=== PATIENT | female | born 1940 | race Caucasian/White ===

== ENCOUNTER → 2016-09-03 08:54 | Outpatient (CLI) | payer MEDICARE, BC ==
[2012-12-18 09:28] VITALS: BMI 25.4
[~2016-09-03 08:54] MED LIST: ACAI BERRY500 MG PO; ATIVAN1 MG PO; BAYER CHEWABLE81 MG PO; BUDEPRION XL150 MG PO; CELEXA40 MG PO; DESERYL100 MG PO; HYDROCHLOROTH12.5 M1 PO; LAMICTAL25 MG PO; LEVAQUIN250 MG PO; OXYBUTYNIN CHLOR5 MG PO; PEPCID20 MG PO; PRIMIDONE; RISPERDAL0.25 MG PO; STAVZOR500 MG PO; SYNTHROID150 MCG PO; ULTRAM50 MG PO; ZESTRIL10 MG PO; ZOCOR40 MG PO
[2016-09-09 15:24] LABS: HISTOPLASMA GAL MANNAN AG SER 0.38 ng/mL (0.00-0.49)
== END | disposition home or self-care (01) ==
LOC: D.LAB 08:54
PROVIDERS: Student in an Organized Health Care Education/Training Program
DX: R89.9 Unspecified abnormal finding in specimens from other organs, systems and tissues (principal)

== ENCOUNTER → 2017-02-12 13:45 | Outpatient (CLI) | payer MEDICARE, BC ==
[2012-12-18 09:28] VITALS: BMI 25.4
== END | disposition home or self-care (01) ==
LOC: D.MAMMO 10:00
DX: Z85.3 Personal history of malignant neoplasm of breast (principal)

== ENCOUNTER 2018-02-15 19:00 | Outpatient (CLI) | payer MEDICARE, BC ==
[2012-12-18 09:28] VITALS: BMI 25.4
== END 2018-02-15 23:59 | disposition home or self-care (01) ==
LOC: D.MAMMO 19:00
DX: D64.9 Anemia, unspecified (principal); Z85.3 Personal history of malignant neoplasm of breast; D50.9 Iron deficiency anemia, unspecified

== ENCOUNTER 2018-07-24 17:39 | Inpatient (IN) | payer MEDICARE, BC ==
[~2018-07-24] VITALS: Ht 162.6 cm; Wt 66.7 kg
[2018-07-24 17:58] LABS: BASOPHILS 0.4 % (0-2); EOSINOPHILS 1.4 % (0-7); HEMATOCRIT 26.5 % (36.0-48.0); HEMOGLOBIN 8.7 g/dL (12-16); IMMATURE GRANULOCYTES 0.4 % (0-5); LYMPHOCYTES 7.5 % (15-50); MCH 32.6 pg (26.0-34.0); MCHC 32.8 g/dL (31.0-37.0); MCV 99.3 fL (80.0-100.0); MEAN PLATELET VOLUME 9.3 fL (7.4-10.4); NEUTROPHILS 84.3 % (40-80); PLATELET COUNT 367 10x3/uL (130-400); RBC 2.67 10x6/uL (4.00-5.40); RDW 14.6 % (11.5-14.5); WBC 11.1 10x3/uL (4.8-10.8)
[2018-07-24 18:16] LABS: ALBUMIN 2.7 g/dL (3.4-5.0); ANION GAP 18.9 mmol/L (8-16); BILIRUBIN - TOTAL 0.32 mg/dL (0.2-1.3); CALCIUM 8.4 mg/dL (8.5-10.1); CARBON DIOXIDE 17.2 mmol/L (21.0-32.0); CREATININE - SERUM 2.2 mg/dL (0.6-1.3); POTASSIUM - SERUM 4.1 mmol/L (3.5-5.1); PROTEIN - SERUM 6.8 g/dL (6.4-8.2)
[2018-07-24 18:40] VITALS: BP 125/51
[2018-07-24 19:05] LABS: APPEARANCE CLEAR (CLEAR); BILIRUBIN NEGATIVE (NEGATIVE); COLOR YELLOW (YELLOW); GLUCOSE NEGATIVE (NEGATIVE); KETONE NEGATIVE (NEGATIVE); NITRITE NEGATIVE (NEGATIVE); PROTEIN 2+ mg/dL (NEGATIVE); RED CELLS - URINE 0-5 /hpf (0-5); UROBILINOGEN NORMAL (NORMAL); WHITE CELLS - URINE NSEEN /hpf (0-5)
[2018-07-24 19:27] VITALS: BP 130/58
[2018-07-24 19:54] LABS: CKMB 41.5 U/L (0.0-3.6); THYROID STIMULATING HORMONE 10.33 uIU/mL (0.36-3.74); TROPONIN-I < 0.017 ng/mL (0.000-0.060)
[2018-07-24 19:55] LABS: CREATINE KINASE 5720 UL (21-215)
[2018-07-24 22:37] VITALS: BP 156/75
[2018-07-25 04:24] VITALS: BP 127/68
[2018-07-25 07:45] VITALS: Ht 162.6 cm; Wt 66.7 kg
[2018-07-25 08:57] VITALS: BP 139/67
[2018-07-25 09:25] LABS: % SATURATION 27 % (15-55); IRON 61 ug/dl (35-150); TOTAL IRON BIND CAPACITY 225 ug/dl (260-445); UNSAT IRON BIND CAPACITY 164 ug/dl (150-375)
[2018-07-25 09:35] LABS: VALPROIC ACID (DEPAKOTE) 3.1 ug/mL (50.0-100.0)
[2018-07-25] MEDS ORDERED: NORVASC5 MG PO (09:45)
[2018-07-25] MEDS ORDERED: LIPITOR80 MG PO (09:46)
[2018-07-25] MEDS ORDERED: CATAPRES0.1 MG PO (09:47)
[2018-07-25] MEDS ORDERED: BUPROPION XL150 MG PO (09:47)
[2018-07-25] MEDS ORDERED: GEMFIBROZIL600 MG PO (09:48)
[2018-07-25] MEDS ORDERED: HYDRALAZINE HCL50 MG PO (09:48)
[2018-07-25] MEDS ORDERED: IPRATROPIUM BR21 MCG NASAL (09:49)
[2018-07-25] MEDS ORDERED: COZAAR50 MG PO (09:50)
[2018-07-25] MEDS ORDERED: TOPROL XL50 MG PO (09:51)
[2018-07-25] MEDS ORDERED: MYSOLINE250 MG PO (09:52)
[2018-07-25] MEDS ORDERED: RANITIDINE HCL150 M1 PO (09:53)
[2018-07-25] MEDS ORDERED: REXULTI1 MG PO (09:53)
[2018-07-25] MEDS ORDERED: SODIUM BICARBO650 MG (09:54)
[2018-07-25] MEDS ORDERED: SUPER B COMPLE150 MG PO (09:54)
[2018-07-25 11:00] VITALS: BP 154/77
[2018-07-25 15:00] VITALS: BP 136/61
[2018-07-25 19:45] VITALS: BP 155/71
[2018-07-25 23:55] VITALS: BP 123/69
[2018-07-26 03:55] VITALS: BP 135/74
[2018-07-26 06:57] LABS: BASOPHILS 0.6 % (0-2); EOSINOPHILS 1.4 % (0-7); HEMATOCRIT 30.3 % (36.0-48.0); HEMOGLOBIN 9.5 g/dL (12-16); IMMATURE GRANULOCYTES 0.9 % (0-5); LYMPHOCYTES 11.4 % (15-50); MCH 31.8 pg (26.0-34.0); MCHC 31.4 g/dL (31.0-37.0); MEAN PLATELET VOLUME 9.6 fL (7.4-10.4); MONOCYTES 11.1 % (2-11); NEUTROPHILS 74.6 % (40-80); PLATELET COUNT 413 10x3/uL (130-400); RBC 2.99 10x6/uL (4.00-5.40); RDW 14.8 % (11.5-14.5)
[2018-07-26 06:59] LABS: MCV 101.3 fL (80.0-100.0); WBC 6.6 10x3/uL (4.8-10.8)
[2018-07-26 07:08] LABS: ANION GAP 19.7 mmol/L (8-16); CALCIUM 9.3 mg/dL (8.5-10.1); CARBON DIOXIDE 18.1 mmol/L (21.0-32.0); POTASSIUM - SERUM 4.8 mmol/L (3.5-5.1)
[2018-07-26 08:35] VITALS: BP 166/93
[2018-07-26 11:38] VITALS: BP 143/67
--- NOTE | 2018-07-26 17:13 | MORECARE ---
CASE MANAGEMENT DISCHARGE SUMMARY PATIENT: JATIN WYNNE [facility] UNIT: [id number] ADM DATE: 07/24/18 AGE: 77 : 40 SEX: F ROOM/BED: D.1208 AUTHOR: GIULIANA ROBLEDO PHYSICIAN: REFERRING PHYSICIAN: ADAN STREET MD DATE OF SERVICE: 07/26/18 Discharge Plan Patient Name: JATIN WYNNE [facility] [facility] 1940 Planned Disposition: Home Anticipated Discharge Date: Discharge Date: Expected LOS: Initial Reviewer: [email or web address] Initial Review Date: 07/24/2018 Generated: 07/26/18 6:13 pm DCPIA - Discharge Planning Initial Assessment Updated by [email or web address]: Betsy Martin on 07/26/18 5:11 pm * Is the patient Alert and Oriented? Yes * How many steps to enter\exit or inside your home? NONE * PCP DR TAE ARRIAGA * Pharmacy [facility] * Preadmission Environment Home Alone * ADLs Independent * Equipment Glucometer * List name and contact numbers for known caregivers / representatives who currently or will assist patient after discharge: ES WYNNE NATHAN RNO- R- [facility] [place] [phone] * Verbal permission to speak to the caregivers and representatives has been obtained from the patient. No * Community resources currently utilized None * Please name any agencies selected above. N/A * Additional services required to return to the preadmission environment? No * Can the patient safely return to the preadmission environment? Yes * Has this patient been hospitalized within the prior 30 days at any hospital? No Patient Name: JATIN WYNNE Page 12034 at 1713 All edits/amendments must be made on the electronic document DICTATION DATE: 07/26/181711 INSECTICIDE EXPERT: DONNY 07/26/181711 RPT#: [id number] DC DATE: STATUS: ADM IN [facility] [address] [place] [address] END OF REPORT
--- NOTE | 2018-07-26 18:00 | MORECARE ---
CASE MANAGEMENT DISCHARGE SUMMARY PATIENT: JATIN WYNNE [facility] UNIT: [id number] ADM DATE: 07/24/18 AGE: 77 : 40 SEX: F ROOM/BED: D.1208 AUTHOR: MEENA,DOC PHYSICIAN: REFERRING PHYSICIAN: ADAN STREET MD DATE OF SERVICE: 07/26/18 Discharge Plan Patient Name: JATIN WYNNE Facility: [facility]:[place] : 1940 Planned Disposition: Home Anticipated Discharge Date: Discharge Date: Expected LOS: Initial Reviewer: [email or web address] Initial Review Date: 07/24/2018 Generated: 07/26/18 7:00 pm Comments DCP- Discharge Planning Updated by [email or web address]: Betsy Martin on 07/26/18 4:[address] MET WITH THE PATIENT AT THE BEDSIDE. SHE WAS EATING DINNER. HER PLAN IS TO RETURN TO HOME AT DISCHARGE. SHE DOES NOT THINK SHE WILL NEED HOME HEALTH SERVICES. PATIENT HAS TWO CHILDREN BOTH OF WHOM LIVE IN [place]. SHE STATES SHE DOES HAVE FRIENDS. NURSE STATES SHE HAD A NUMBER OF PEOPLE VISIT TODAY. MAY NEED TRANSPORTATION ASSISTANCE TO HOME. HOME HEALTH MAY BE HELPFUL IF PATIENT HAS MEDICATION MANAGEMENT ISSUES SHE STATES SHE TAKES HER BLD GLUCOSE READING AND DAILY B/P READINGS. MEDICATIONS ARE PRIMARILY RECEIVED VIA [facility]. SHE UTILIZES [facility] FOR SHORT TERM MEDS BECAUSE THEY DELIVER. THERE ARE NO STAIRS TO ENTER HER HOME.. PCP- DR ARRIAGA NEUROSURG- DR HENDRICKSON CARDIOLOGY- DR MARION ORTHO- DR OSULLIVAN NEPHROLOGY- DR YANEZ ONCOLOGY- COULD NOT RECALL THE NAME AT THE MOMENT STATES SHE FEELS MUCH BETTER THAN YESTERDAY. PATIENT HAD [facility] CONSULT ORDERED 07/25/18. TC TO [facility] AND REFAXED THE CONSULT ORDER NO CONSULT NOTED. MED III STAFF DID NOT RECALL SEEING THE DOCTOR TODAY. CM TO FOLLOW TO ASSIST W/ DISCHARGE PLANNING. DCPIA - Discharge Planning Initial Assessment Updated by [email or web address]: Betsy Martin on 07/26/18 5:11 pm * Is the patient Alert and Oriented? Yes * How many steps to enter\exit or inside your home? NONE * PCP DR TAE ARRIAGA * Pharmacy [facility]ORT TERM MEDS * Preadmission Environment Home Alone * ADLs Independent * Equipment Glucometer * List name and contact numbers for known caregivers / representatives who currently or will assist patient after discharge: ES WYNNE NATHAN RON- DTR- LIVES IN [place] [phone] * Verbal permission to speak to the caregivers and representatives has been obtained from the patient. No * Community resources currently utilized None * Please name any agencies selected above. N/A * Additional services required to return to the preadmission environment? No * Can the patient safely return to the preadmission environment? Yes * Has this patient been hospitalized within the prior 30 days at any hospital? No Last DP export: 07/26/18 4:13 p Patient Name: JATIN WYNNE Page [id number] at 1800 All edits/amendments must be made on the electronic document DICTATION DATE: 07/26/181758 JET AIRCRAFT SERVICER: DONNY 07/26/181758 RPT#: [id number] DC DATE: STATUS: ADM IN [facility] [address] [place] [address] END OF REPORT
[2018-07-26 20:00] VITALS: BP 176/80
[2018-07-27] VITALS: BP 153/78
[2018-07-27 04:10] VITALS: BP 157/76
[2018-07-27 06:57] LABS: HEMOGLOBIN 9.5 g/dL (12-16); MCH 36.5 pg (26.0-34.0); MCHC 36.5 g/dL (31.0-37.0); MEAN PLATELET VOLUME 10.4 fL (7.4-10.4); PLATELET COUNT 370 10x3/uL (130-400); RDW 14.6 % (11.5-14.5); WBC 7.6 10x3/uL (4.8-10.8)
[2018-07-27 07:32] LABS: CALCIUM 8.3 mg/dL (8.5-10.1); CARBON DIOXIDE 20.7 mmol/L (21.0-32.0)
[2018-07-27 07:42] LABS: POTASSIUM - SERUM 5.7 mmol/L (3.5-5.1)
[2018-07-27 08:16] LABS: FOLATE (FOLIC ACID) - SERUM >20.0 ng/mL (>3.0)
[2018-07-27 08:54] LABS: EOSINOPHILS 4 % (0-7); LYMPHOCYTES 22 % (15-50); MONOCYTES 10 % (2-11); NEUTROPHILS 64 % (40-80); PLATELET ESTIMATE NORMAL
[2018-07-27 08:55] LABS: ANISOCYTOSIS OCC; HYPOCHROMASIA OCC; ROULEAUX 1+
[2018-07-27 09:05] VITALS: BP 150/74
[2018-07-27] MEDS ORDERED: LEVAQUIN750 MG PO (11:18)
[2018-07-27] MEDS ORDERED: MOBIC7.5 MG PO (11:19)
[2018-07-27] MEDS ORDERED: MUCINEX600 MG PO (11:19)
[2018-07-27 12:33] VITALS: BP 150/67
--- NOTE | 2018-07-27 16:26 | MORECARE ---
CASE MANAGEMENT DISCHARGE SUMMARY PATIENT: JATIN WYNNE [facility] UNIT: [id number] ADM DATE: 07/24/18 AGE: 77 : 40 SEX: F ROOM/BED: D.1208 AUTHOR: MEENA,DOC PHYSICIAN: REFERRING PHYSICIAN: ADAN STREET MD DATE OF SERVICE: 07/27/18 Discharge Plan Patient Name: JATIN WYNNE Facility: [facility]:[place] : 1940 Planned Disposition: Home Anticipated Discharge Date: 07/27/18 Discharge Date: 07/27/2018 Expected LOS: 3 Initial Reviewer: [email or web address] Initial Review Date: 07/24/2018 Generated: 07/27/18 5:26 pm Comments DCP- Discharge Planning Updated by [email or web address]: Betsy Martin on 07/26/18 4:[address] MET WITH THE PATIENT AT THE BEDSIDE. SHE WAS EATING DINNER. HER PLAN IS TO RETURN TO HOME AT DISCHARGE. SHE DOES NOT THINK SHE WILL NEED HOME HEALTH SERVICES. PATIENT HAS TWO CHILDREN BOTH OF WHOM LIVE IN [place]. SHE STATES SHE DOES HAVE FRIENDS. NURSE STATES SHE HAD A NUMBER OF PEOPLE VISIT TODAY. MAY NEED TRANSPORTATION ASSISTANCE TO HOME. HOME HEALTH MAY BE HELPFUL IF PATIENT HAS MEDICATION MANAGEMENT ISSUES SHE STATES SHE TAKES HER BLD GLUCOSE READING AND DAILY B/P READINGS. MEDICATIONS ARE PRIMARILY RECEIVED VIA [facility]. SHE UTILIZES [facility] FOR SHORT TERM MEDS BECAUSE THEY DELIVER. THERE ARE NO STAIRS TO ENTER HER HOME.. PCP- DR ARRIAGA NEUROSURG- DR HENDRICKSON CARDIOLOGY- DR MARION ORTHO- DR OSULLIVAN NEPHROLOGY- DR YANEZ ONCOLOGY- COULD NOT RECALL THE NAME AT THE MOMENT STATES SHE FEELS MUCH BETTER THAN YESTERDAY. PATIENT HAD [facility] CONSULT ORDERED 07/25/18. TC TO [facility] AND REFAXED THE CONSULT ORDER NO CONSULT NOTED. MED III STAFF DID NOT RECALL SEEING THE DOCTOR TODAY. CM TO FOLLOW TO ASSIST W/ DISCHARGE PLANNING. DCPIA - Discharge Planning Initial Assessment Updated by [email or web address]: Betsy Martin on 07/26/18 5:11 pm * Is the patient Alert and Oriented? Yes * How many steps to enter\exit or inside your home? NONE * PCP DR TAE ARRIAGA * Pharmacy [facility] * Preadmission Environment Home Alone * ADLs Independent * Equipment Glucometer * List name and contact numbers for known caregivers / representatives who currently or will assist patient after discharge: ES EVANS ARIADNE- DTR- LIVES IN [place] [phone] * Verbal permission to speak to the caregivers and representatives has been obtained from the patient. No * Community resources currently utilized None * Please name any agencies selected above. N/A * Additional services required to return to the preadmission environment? No * Can the patient safely return to the preadmission environment? Yes * Has this patient been hospitalized within the prior 30 days at any hospital? No Coverage Notice Reviewer: [email or web address] Mer Gonzalez Notice Issued Date-Time: 07/27/2018 10:01 Notice Type: IM Discharge Notice Notice Delivered To: Patient Relationship to Patient: Self Snow Plow Tractor Operator Name: Delivery Method: HAND - Hand Delivered Rachel Days: Prior Verbal Notification: Recipient Understood Notice: Yes Recipient Signature: Yes Med Rec Note Co-signed by Attending: Coverage Notice Comment: Last DP export: 07/26/18 5:00 p Patient Name: JATIN WYNNE Page 23712 at 1626 All edits/amendments must be made on the electronic document DICTATION DATE: 07/27/181625 HISTOLOGY TECH: DONNY 07/27/181625 RPT#: [id number] DC DATE:07/27/18 STATUS: DIS IN [facility] [address] [place] [address] END OF REPORT
== END 2018-07-27 14:40 | disposition home or self-care (01) | DRG 195 ==
LOC: D.ER 17:39 → D.EDHOLD 18:59 → D.M3 18:59
PROVIDERS: Emergency Medicine; ADMIT Internal Medicine Nephrology
DX: J18.9 Pneumonia, unspecified organism (principal); D64.9 Anemia, unspecified; I10 Essential (primary) hypertension; E78.5 Hyperlipidemia, unspecified; E11.9 Type 2 diabetes mellitus without complications; F31.9 Bipolar disorder, unspecified; M19.90 Unspecified osteoarthritis, unspecified site

== ENCOUNTER 2018-08-13 09:04 | Outpatient (CLI) | payer MEDICARE, BC ==
[~2018-08-13] VITALS: Ht 162.6 cm; Wt 66.8 kg
[~2018-08-13 09:04] MED LIST changes: +BUPROPION XL150 MG PO; +CATAPRES0.1 MG PO; +COZAAR50 MG PO; +GEMFIBROZIL600 MG PO; +HYDRALAZINE HCL50 MG PO; +IPRATROPIUM BR21 MCG NASAL; +LEVAQUIN750 MG PO; +LIPITOR80 MG PO; +MOBIC7.5 MG PO; +MUCINEX600 MG PO; +MYSOLINE250 MG PO; +NORVASC5 MG PO; +RANITIDINE HCL150 M1 PO; +REXULTI1 MG PO; +SODIUM BICARBO650 MG; +SUPER B COMPLE150 MG PO; +TOPROL XL50 MG PO
[2018-08-13 09:35] LABS: BASOPHILS 0.2 % (0-2); HEMATOCRIT 28.6 % (36.0-48.0); HEMOGLOBIN 9.2 g/dL (12-16); IMMATURE GRANULOCYTES 0.8 % (0-5); LYMPHOCYTES 12.7 % (15-50); MCHC 32.2 g/dL (31.0-37.0); MCV 102.5 fL (80.0-100.0); MEAN PLATELET VOLUME 9.1 fL (7.4-10.4); MONOCYTES 8.8 % (2-11); NEUTROPHILS 74.5 % (40-80); PLATELET COUNT 366 10x3/uL (130-400); RBC 2.79 10x6/uL (4.00-5.40); RDW 16.6 % (11.5-14.5)
[2018-08-13 09:47] LABS: ANION GAP 19.5 mmol/L (8-16); CALCIUM 8.5 mg/dL (8.5-10.1); CARBON DIOXIDE 19.9 mmol/L (21.0-32.0); CREATININE - SERUM 1.9 mg/dL (0.6-1.3); POTASSIUM - SERUM 4.4 mmol/L (3.5-5.1)
[2018-08-13 09:48] LABS: APTT 32.9 SECONDS (22.8-39.4); INR 1.09 (0.85-1.17); PROTIME 13.6 SECONDS (11.6-15.0)
[2018-08-13 10:29] VITALS: Ht 162.6 cm; Wt 66.8 kg
--- NOTE | 2018-08-13 10:43 | NUR ---
IV STARTED WITH 20 G ANGIOCATH IN RIGHT ARM, TOLERATED WELL
== END 2018-08-13 13:30 | disposition home or self-care (01) ==
LOC: D.SP 09:04 → D.CT 11:00 → D.SP 11:00
PROVIDERS: Radiology Diagnostic Radiology
DX: D64.9 Anemia, unspecified (principal); Z01.812 Encounter for preprocedural laboratory examination

== ENCOUNTER 2019-09-14 09:00 | Outpatient (CLI) | payer MEDICARE, BC ==
[2018-08-13 10:29] VITALS: BMI 25.3
== END 2019-09-14 10:00 | disposition home or self-care (01) ==
LOC: D.MAMMO 09:00
PROVIDERS: ATTEND Family Medicine Adult Medicine
DX: Z85.3 Personal history of malignant neoplasm of breast (principal)

== ENCOUNTER 2020-11-09 20:30 | Outpatient (CLI) | payer MEDICARE, BC ==
[2018-08-13 10:29] VITALS: BMI 25.3
== END 2020-11-09 23:59 | disposition home or self-care (01) ==
LOC: D.MAMMO 20:30
PROVIDERS: ATTEND Internal Medicine Hematology & Oncology
DX: Z85.3 Personal history of malignant neoplasm of breast (principal); D64.9 Anemia, unspecified; D50.9 Iron deficiency anemia, unspecified